=== PATIENT | male | born 1965 | race Caucasian/White ===

== ENCOUNTER 2018-11-10 00:54 | Outpatient (CLI) | payer OTHER, MEDICAID, SELFPAY ==
--- NOTE | 2018-11-10 15:56 | DI.RAD_ITS ---
SYMPTOM/DIAGNOSIS: PAIN IN LEFT ;HIP M25.552 PELVIS AND LEFT HIP: There are no prior comparison exams. There is moderate to severe narrowing of both hip joint spaces, greatest superiorly left greater than right. There is acetabular spurring bilaterally, left greater than right as well as spurring from the margin of the femoral head bilaterally. The S-I joints and pubic symphysis are unremarkable. IMPRESSION: Severe degenerative changes of both hips, left greater than right.
== END 2018-11-10 01:14 ==
PROVIDERS: PCP Family Medicine
DX: M25.552 Pain in left hip (principal); M16.0 Bilateral primary osteoarthritis of hip
CPT/HCPCS: 73502

== ENCOUNTER 2019-05-09 11:03 | Outpatient (CLI) | payer MEDICAID, SELFPAY ==
--- NOTE | 2019-05-09 10:15 | DI.RAD_ITS ---
EXAM: XR PELVIS AP INDICATION: mag marker. COMPARISON: XR hip LT complete AP pelvis from 11/10/2018 TECHNIQUE: 2D digital imaging was performed. FINDINGS: In the left hip, there is moderately severe narrowing of the joint space. Periarticular spurring and subchondral sclerosis is seen. In the right hip, moderately severe narrowing is present. There is mild subchondral sclerosis and periarticular spurring present. Soft tissues are unremarkable. IMPRESSION: Bilateral hip osteoarthritis.
== END 2019-05-09 11:23 ==
PROVIDERS: PCP Family Medicine; Visit Provider Student in an Organized Health Care Education/Training Program
DX: M16.0 Bilateral primary osteoarthritis of hip (principal)
CPT/HCPCS: 72170

== ENCOUNTER 2019-06-21 08:37 | Outpatient (CLI) | payer MEDICAID, SELFPAY ==
[2019-06-21 10:09] LABS: HCT 44.2 % (40.0-50.0); HGB 14.9 g/dL (13.5-17.5); Mean Corp. HGB Concentration 33.7 g/dL (32.0-36.0); Mean Corpuscular Hemoglobin 30.5 pg (27.0-33.0); Mean Corpuscular Volume 90.6 fL (80-95); Mean Platelet Volume 9.4 fL (8.0-11.0); Platelet Count 251 x1000/uL (130-400); RBC 4.88 m/cumm (4.50-6.00); RBC Distribution Width 13.2 % (11.8-14.1); White Blood Cell Count 6.04 k/cumm (4.4-10.8)
[2019-06-21 10:34] LABS: Anion Gap 7.8 mmol/L (3-11); BUN 10 mg/dL (7-18); CO2 28.2 mmol/L (21.0-32.0); CREATININE 1.19 mg/dL (0.70-1.30); Calcium 8.3 mg/dL (8.5-10.1); Chloride 104 mmol/L (98-107); Glucose 122 mg/dL (74-106); Potassium 4.4 mmol/L (3.5-5.1); Sodium 140 mmol/L (136-145)
== END 2019-06-21 08:57 ==
PROVIDERS: PCP Family Medicine; Visit Provider Student in an Organized Health Care Education/Training Program
DX: M25.552 Pain in left hip (principal); M16.12 Unilateral primary osteoarthritis, left hip; Z01.818 Encounter for other preprocedural examination; Z01.812 Encounter for preprocedural laboratory examination
CPT/HCPCS: 36415; 80048; 85027; 86850; 86900; 86901

== ENCOUNTER 2019-06-28 05:55 | Observation (INO) | payer MEDICAID, SELFPAY ==
[2019-06-21 08:44] VITALS: BP 119/81; PULSE 79; O2SAT 97
[2019-06-21 08:49] VITALS: BP 119/81; PULSE 79; O2SAT 97
[2019-06-21 08:50] VITALS: BP 119/81; PULSE 79; O2SAT 97
[2019-06-28] VITALS (10 sets, daily range): BP systolic 108–133; BP diastolic 61–84; PULSE 62–95; RESP 12–22; TEMP 36.1–37.1; O2SAT 95–99
[2019-06-28] MEDS: Acetaminophen 500 MG TAB 1000 MG PO ×2 (06:37→14:36)
[2019-06-28] MEDS: Celecoxib 200 MG CAP 400 MG PO (06:37)
[2019-06-28] MEDS: Lactated Ringers 1,000 ML 80 ML IV (06:48)
--- NOTE | 2019-06-28 07:45 | DI.RAD_ITS ---
EXAM: XR HIP LT IN OR CLINICAL HISTORY: left total hip arthroplasty - anterior. TECHNIQUE: 2D digital imaging was performed. Fluoro time: 54.4 s, 7.77 mGy COMPARISON: XR PELVIS AP from 05/09/2019 FINDINGS: Fluoroscopy was utilized in the OR during the placement of a left total hip replacement. The orthope dic hardware appears in good position. Please refer to the procedure report for complete details. IMPRESSION: Status post left THR.
[2019-06-28] MEDS: ceFAZolin 2 GM/50 ML BAG IVPB (07:53)
[2019-06-28] MEDS: Bupivacaine 0.25% Pres-Free 30 ML VIAL (09:36)
[2019-06-28] MEDS: Ketorolac 30 MG/ML VIAL (09:38)
--- NOTE | 2019-06-28 09:57 | W.PM.OP ---
Date of service: 06/28/19 Time of Service: 09:57 Operative Note Operative Note DATE OF PROCEDURE: 06/28/19 PRE-OP DIAGNOSIS: Left Hip Osteoarthritis POST-OP DIAGNOSIS: same PROCEDURE: Left Anterior Total Hip Arthroplasty SURGEON: Thomas Reid MARKETING INFORMATION MANAGER: Linda Lawton ANESTHESIA: spinal ESTIMATED BLOOD LOSS: 300 PATHOLOGY: none sent COMPLICATIONS: None Patient was transported to: PACU Patient's condition: stable Implants: 1. Depuy [place] Acetabular Component, 56mm 2. Depuy Acetabular Liner, [id number] 3. Depuy Corail Standard Collared Femoral Stem, Size 13 4. Depuy Altrx Ceramic Femoral Head, Size 36+5mm Indications: I have seen Iam in clinic for symptoms of hip arthritis, confirmed with radiographic findings. Iam has exhausted nonoperative methods and was having significant limitations in daily function and desired better function and less pain. I discussed the technical details of a hip replacement. I explained the risks of the procedure to include, but not limited to, bleeding, infection, pain, stiffness, fracture, damage to nerves and vessels, damage to muscles and tendons, loosening, instability, leg length inequality, need for repeat procedure, blood clot and cardiopulmonary demise. Despite these risks, Iam elected to proceed. Findings: There was significant signs of arthritis throughout the hip. Procedure Description: Iam was greeted in the preoperative holding area where the correct side was identified and marked. The consent was reviewed with the patient and signed. The history and physical was updated. All questions were answered. Iam was taken back to the operating room. A spinal anesthestic was then administered. The patient was placed into the supine position on the operating room table. The patient was then positioned onto the ARCH table. Both feet were wrapped with Webrill cotton wrap along with Coban. The feet were placed in specialized boots for the ARCH table, well seated within the boot and secured. SCDs were applied. The patient was then slid down onto a peroneal post and the nonoperative leg was secured in a leg chandra attached to the table. The operative side was placed into the ARCH table attachment and bed height and positioning was secured. A preoperative AP pelvis was obtained to serve as a reference for determining leg lengths. Prophylactic antibiotics in the form of Cefazolin were administered. 1g of Tranxemic Acid was given intravenously within 30 minutes of incision. The left leg was then prepped with Chloraprep and draped in a standard fashion. A second prep was performed prior to placing the final shower-curtain type drape with Iodine impregnated skin protection. A timeout to confirm correct identity, side and site, procedure, allergies, anesthesia, and medical concerns was performed. An obliquely oriented incision was made starting lateral to the ASIS and running distal over the Tensor Fascia Herlinda (TFL) muscle belly toward the fibular head, approximately 10cm. The skin and soft tissue was dissected sharply, through Ford?s fascia, and to the fascia of the TFL. With the fascia and superior border of the IT band identified, the fascia was incised with a new knife just above any perforators from the IT band. The TFL muscle belly was bluntly dissected away from the fascia and moved laterally. The fat between TFL and rectus was identified to ensure the dissection was not within the TFL. Blunt dissection created space between abductors and the capsule and retractor was placed over the lateral femoral neck. The fibers of the rectus femoris tendon were identified and these were freed from the anterior capsule. A second cobra retractor was placed around the medial femoral neck. The TFL was further retracted laterally to show the deep fascia. Careful dissection through this layer identified three main crossing vessels of the lateral femoral circumflex. These were cauterized in multiple locations and then cut without any noticeable bleeding. The TFL was further released bluntly from the deep fascia to expose anterior hip capsule and fat The César orthopaedic retractor was then placed beneath the TFL and against sartorius and medial soft tissues to protect and retract the soft tissues. A T-capsulotomy was then performed starting at the superior lateral acetabulum and moving distally to the intertrochanteric ridge. These capsular flaps were tagged with a No. 1 Ethibond and elevated from within. The capsular flaps were released to the shoulder of the lateral neck and to the lesser trochanter to give excellent visualization of the proximal femur. A neck osteotomy was performed using an oscillating saw based on preoperative templates. This cut started in the shoulder and of the lateral neck and exited medially. The saw was at all times directed medially to avoid injury to the greater trochanter. 6cm of traction was applied to the leg and the osteotomy opened. The femoral head was removed with a corkscrew, making sure to protect the TFL on its exit. This was measured on the back table to determing the starting reamer size. Portions of the rectus obscuring visualization were minimally elevated off the superior acetabulum. An anterior retractor was placed over the anterior wall between capsule and labrum and held with the Gripper retraction system. A posterior retractor was placed similarly. This provided excellent visualization. The contents of the cotyloid fossa were removed with electrocautery and the labrum was removed with a knife. There was a notable floor osteophyte. There was significant chondromalacia of the superior acetabulum. Acetabular reaming began with a 52mm reamer. This first reaming was directed anterior to posterior and medial to get down to the true floor. This was inspected and reamed until the true floor was reached. I then reamed sequentially up to a 56mm reamer where good fit was obtained. The larger reamers were oriented based on anatomical reference of the anterior and lateral bautista to ensure proper abduction and anteversion. Positioning and size was confirmed with the fluoroscopy. A 56mm Depuy [place] acetabular component was selected. The deep tissues were irrigated. The acetabular component was then impacted in a position of about 40-45 degrees of abduction and 15-20 degrees of anteversion, using the patient?s anatomy as the ultimate landmark. Fluoroscopy was used to confirm this. There was excellent internal affairs commander of the acetabular component and the inserting handle was removed. The acetabular liner, Depuy [id number] polyethylene liner, was inserted and lined up with the tines of the acetabular component. There was no soft tissue interposition. The liner was then impacted into position and confirmed to be well-seated. A portion of the mk-articular cocktail was then injected around the acetabulum into the capsule and periosteum. This cocktail consisted of 50cc of 0.25% Bupivicaine and 20cc of Exparel, expanded to a total of 120cc. Traction was released from the femur. The leg was rotated to 120 degrees. Any remaining medial capsule was released until the lesser trochanter was easily palpable. A Velasco retractor was placed medially. The lateral capsule was further released into the shoulder to allow access to the greater trochanter. A Velasco retractor was placed over the greater trochanter which allowed the trochanter to flip in front of the capsule for excellent exposure. The leg was brought down into maximal extension and 20 degrees of adduction while ensuring there was no impingement on the acetabulum. Any remnant capsule within the trochanter was released. Piriformis and obturator externis were identified and protected. There was excellent access to the proximal femur. The lateral neck remnant was removed with a rongeur. A blunt canal probe was used to identify the canal and trajectory for later broaching. A box osteotome initiated the broach course. A small curved rasp and a curved curette were used to work laterally. Broaching then began with a size 8 Corail broach. This was inserted manually around the trochanter and into the canal before mallet blows. The broach was seated to a few millimeters below the cut level based on the neck cut and the preoperative template. Sequential broaching was continued until a tight fit was obtained with good rotational control of the femur. A trial standard neck was inserted along with a +5 trial head. The cup was slightly more lateral than my template and the neck cut was a few mm shorter so I went with a standard neck versus lateralized. The leg was brought out of extension and adduction and then reduced with traction and internal rotation. The leg was stable anteriorly in a position of 30 degrees of extension and 90 degrees of external rotation. Fluoroscopy was used to ensure there was no fracture and the stem was seated well. Leg lengths were checked with an AP pelvis and pelvic reference points. Once content with the desired offset and leg lengths, the leg was brought back into extension, external rotation and adduction. The periosteum and surrounding tissue was injected with remaining portion of the mk-articular cocktail. The proximal femur was irrigated as well as the deep tissues. The Depuy [place] standard collared stem, size 13, was then manually inserted into the proximal femur making sure to control rotation. It was then malleted into position with light blows, giving breaks to allow bone expansion and decrease risk of fracture. The selected Depuy Altrx Ceramic Head, size 36+5mm, was then placed onto the clean and dry trunnion and secured with impaction onto the tapered fit. The leg was brought back out of extension and adduction and reduced with traction and internal rotation. Stability was confirmed with no shuck at 90 degrees of external rotation and 30 degrees of extension. There was some very minimal impingement posterior-inferiorly from an acetabular osteophyte. This was resected with a curved osteotome. Afterwards, there was no impingement through range of motion arc. Final x-ray images were obtained with fluoroscopy to confirm adequate positioning and no intraoperative fracture. The deep tissues were thoroughly irrigated with a pulse lavage. The second dose of TXA 1g was administered intravenously.The capsule was then reapproximated with the previously placed Ethibond sutures. The TFL fascia was finally closed with a No. 2 Stratafix, barbed suture. Deep tissues were then reapproximated with 0 Vicryl and a running 2-0 Vicryl. The skin was closed with a running 4-0 Monocryl in a subcuticular fashion. This was reinforced with skin glue. A Mepilex silver dressing was applied. At the end of the case, all counts were correct. Iam was transferred to the hospital bed without difficulty and suffering no apparent complication. Iam has a good prognosis. Physical therapy will start today and without restrictions, weight-bearing as tolerated. Aspirin 81mg BID will be used for DVT prophylaxis.
[2019-06-28] MEDS: Normal Saline Flush 10 ML SYR IV (11:18)
--- NOTE | 2019-06-28 14:16 | DSE_ITS ---
Date of service: 06/28/19 Time of Service: 14:16 DS: Diagnosis Discharge Diagnosis (1) Primary osteoarthritis of left hip: Status: Acute Discharge Plan Disposition Patient Disposition: HOME Condition: Good Discharge Details Reason For Visit: L HIP DJD Admit Date/Time: 06/28/19 05:55 Admit Provider: Thomas Reid Attending Provider: Thomas Reid [facility] Course: Patient was admitted to the medical/surgical floor following the procedure. It was tolerated well without any notable medical, surgical, or anesthetic complications. Mobilization began postoperatively. The diamond catheter was removed and voiding spontaneously. Vitals were stable. Physical therapy worked with the patient and was cleared for discharge home. No acute medical issues. Home Meds and New Rx's Prescriptions: New aspirin 81 mg tablet,delayed release (DR/EC) 81 mg PO BID Qty: 60 RF: 0 acetaminophen 500 mg tablet 1,000 mg PO Q8H PRN (Reason: pain) Qty: 90 RF: 3 pantoprazole 40 mg tablet,delayed release (DR/EC) 40 mg PO DAILY Qty: 30 RF: 0 ibuprofen 600 mg tablet 600 mg PO TID PRNQty: 90 RF: 3 oxycodone 5 mg tablet 5 mg PO Q6H PRN PRNQty: 12 RF: 0 Discontinued ibuprofen [Ibuprofen IB] 200 MG tablet 800 mg PO PRN RF: 0 diclofenac sodium [Voltaren] 1 % Gel 1 % TOPICAL DIRECTED RF: 0 Discharge Instructions Additional Instructions: Dr. Reid?s Total Hip Discharge Instructions Activity: The most important activity is to walk. You should try to take short walks a few times a day. You have no restrictions on movement or positioning, but do not try to force what you do. You will find some stiffness and weakness with hip flexion (lifting your knee). Do not try to strengthen this too early, continue to practice walking and stairs and this will come. - Outpatient physical therapy can be helpful to help return you to a normal gait and improve your flexibility and strength. This can start around 2 weeks. For some patients, it?s not necessary. Usually this is determined at the time of discharge or at the first post-operative visit. - You should wear the DELLA hose on both legs for 2 weeks. Dressing: Keep the surgical dressing in place for at least one week. After the first week it may be removed and replace with light gauze and tape or nothing. It may get wet after 3 days but avoid soaking the dressing. If it gets wet, just lightly pat dry. It is important to always keep some gauze between skin folds, especially when you are sitting. Spend some time with the wound exposed when you are lying flat as the incision does wrinkle onto itself. Medications: - You should take Tylenol and an anti-inflammatory Ibuprofen as your primary pain control medications - You have been prescribed a stronger pain medication Oxycodone for breakthrough pain, take as needed as prescribed. - You have also been prescribed a stomach acid reduction agent Pantoprozole to help reduce stomach acid and reflux. - You will be taking Aspirin 81mg twice a day for DVT prevention unless instructed otherwise. - If you have constipation you should take Colace or Miralax (both [id number]). It takes most people 3-4 days to have a bowel movement. Follow-up: 2 weeks Stand Alone Forms: Nursing Discharge Form Referrals: Thomas Reid MD [ [facility] STAFF PHYSICIAN] - Activity:: Activity as Tolerated Equipment/Supplies:: Walker Diet:: As Tolerated Discharge Orders Discharge Orders: Discharge Order (Routine); Ordered 06/28/19 Ordered By: Thomas Reid DS: Summary Status at Discharge Functional status at discharge: uses cane/walker Overall status at discharge: patient is progressing back to baseline Mental Status: mental status grossly normal Speech and Movement: speech and movement normal Mood: congruent mood Affect: normal affect Exam Psych Mental Status: mental status grossly normal Speech and Movement: speech and movement normal Mood: congruent mood Affect: normal affect DS: Data Vitals/I&O Vitals and I&O: Vital Signs Temperature 37.1 C 06/28/19 12:24 Temperature Source Temporal Artery Scan 06/28/19 12:24 Pulse 67 06/28/19 12:24 Pulse Rhythm Regular 06/28/19 06:09 Respiratory Rate 18 06/28/19 12:24 Respiratory Effort 06/28/19 06:09 Respiratory Depth Normal 06/28/19 06:09 Blood Pressure 133/67 06/28/19 12:24 Pulse Oximetry 98 06/28/19 12:24 Respiratory End-tidal CO2 31 06/28/19 10:10 Oxygen Delivery Method Room Air 06/28/19 12:24 Oxygen Flow Rate 0 06/28/19 12:24 Pain Level 0 06/28/19 11:16 Intake & Output 06/27/19 06/28/19 06/28/19 23:59 11:59 23:59 Intake Total 1024.667 / 1024.667 Output Total 350 / 350 Balance 674.667 / 674.667 Weight 119.3 kg Intake: IV 1024.667 / 1024.667 Output: Urine 50 / 50 Estimated Blood Loss 300 / 300 Other: Urine Color Yellow Urine Appearance Clear Emesis Description None PFSH Medical History IBS (irritable bowel syndrome) (Chronic) Tinnitus (Acute) Social History Smoking/Tobacco Use Status: Never Alcohol Intake: current Details: one wine cooler/week Drug use: Never Current gender identity: male
[2019-06-28] MEDS: ceFAZolin 1 GM/50 ML BAG IVPB (14:37)
--- NOTE | 2019-06-28 14:37 | PT.INIE ---
Date of service: 06/28/19 Time of Service: 12:45 PT Notes Visit Reasons: L HIP DJD Physical Therapy Inpatient Initial Evaluation Date: 06/28/2019 Referring Doctor: Thomas Reid M.D. PT Orders: PT CONSULT: s/p ortho surgery Precautions: Fall. Standard. Activity as tolerated. Patient Profile/Admitting Diagnosis: Pt is a 54-year-old male presenting status post left total hip arthroplasty on post-operative day 0 due degenerative joint diesease of L hip. PMHX: Medical History (Updated 06/21/19 @ 08:56 by Vinayak Disla) IBS (irritable bowel syndrome) (Chronic) Tinnitus (Acute) Social History/Home Situation: Pt lives at home in [facility] with his and three kids. States that he has ten covered stairs to enter his home with railing on the right. No stairs once in the home. He is a pork and beef slaughterer. Equipment Owned/DME: crutches Subjective: Pt states that he is numb in his buttox, but is able to feel his legs. Not experiencing any pain. He notes that he feels better now than he did prior to the surgery and has better range now as well. Objective: General Observation: Mepilex dressing over incision. Thromboembolic pumps on bilateral LEs. Mental Status: alert and oriented x4 Pain: 0/10 ROM: Right Upper Extremity: Shoulder Flexion WFL. Shoulder abduction WFL. Elbow flexion WFL. Wrist flexion WFL. Opening and closing of hand WFL. Left Upper Extremity: Shoulder Flexion WFL. Shoulder abduction WFL. Elbow flexion WFL. Wrist flexion WFL. Opening and closing of hand WFL. Right Lower Extremity: Hip flexion WFL. Hip abduction WFL. Knee flexion WFL. Ankle dorsiflexion WFL. Ankle plantarflexion WFL. Left Lower Extremity: Hip flexion WFL. Hip abduction WFL. Knee flexion WFL. Ankle dorsiflexion WFL. Ankle plantarflexion WFL. Strength: Right Upper Extremity: Shoulder flexors 5/5. Shoulder abductors 5/5. Elbow flexors 5/5. Elbow extensors 5/5. Repair Manager strong. Left Upper Extremity: Shoulder flexors 5/5. Shoulder abductors 5/5. Elbow flexors 5/5. Elbow extensors 5/5. Repair Manager strong. Right Lower Extremity: Hip flexors 5/5. Hip abductors 5/5. Knee flexors 5/5. Knee extensors 5/5. Ankle dorsiflexors 5/5. Ankle plantarflexors 5/5. Left Lower Extremity: Hip flexors 4+/5. Hip abductors 5/5. Knee flexors 5/5. Knee extensors 5/5. Ankle dorsiflexors 5/5. Ankle plantarflexors 5/5. Sensation: Intact as to pain and pressure on bilateral lower extremities. Bed Mobility/Transfers: Rolling independent Supine to sit independent Sit to supine independent Sit to stand supervision Stand to sit supervision Bed to chair supervision Chair to bed supervision Gait: Pt was able to ambulate 100 feet x2, WBAT on the left LE, using a front-wheeled walker. CGA provided by PT with wheelchair follow provided by PT student. Reciprocal, step through gait pattern. No complaints of increased pain, SOB, dizziness, but did not a ?tinge? in the hip when walking. Stairs: Pt was able to ascend and descend the 6-inch steps x 6 and 4-inch steps x 9 with SBA provided by PT and PT student. step through gait pattern used without pain complaint. He performed one time with bilateral UE support and twice with only support of the right UE. No complaints of increased pain. Balance: Static Sitting: Normal Dynamic Sitting: Normal Static Standing: Fair Dynamic Standing: Fair Special Tests: Mobility Limitations Standardized Measure [facility] AM-PAC 6 clicks Basic Mobility Inpatient Short Form: Raw Score: 24 CMS Score: 0% deficit Informed Consent/Education: Patient instructed in purpose of PT consult and plan of care. Instructed the patient in exercises to perform every hour while the hospital including glute sets x 10, quad sets x10, and ankle pumps x 10. Assessment: Pt is a 54-year-old male presenting status post left total hip arthroplasty on post-operative day zero. He presents with impairment level findings and functional limitations as listed below. He does not require skilled physical therapy services at this time. Patient presents with clinical signs and symptoms consistent with current/admitting diagnoses that have resulted to mobility limitations, gait instability, and generalized weakness as demonstrated by the following impairment level findings: 1. Decreased strength to left hip flexor muscle groups 2. Impaired standing balance 3. Impaired activity tolerance Impairments are contributing to the following functional limitations: 1. Inability to safely ambulate without assistive device and physical assistance 2. Increase completion time for mobility ADL performance 3. Increased fall risk Patient is assessed as a 60311 moderate complexity based on the following: History: Pt presents with impairment level findings and functional limitations as listed above. Examination: Demonstrable impairment in strength, balance, and range of motion with underlying impairments and functional limitations as documented above Presentation: Evolving Decision Makin moderate complexity Goals: N/A. Physical therapy evaluation only. DISCHARGE RECOMMENDATIONS: Discharge to home once medically cleared. Recommend front-wheeled walker for ambulation. TREATMENT CODE/TIME: 90907 x 30 minutes beginning at 12:45 P.M. Thank you very much for this referral. Alison Connolly, SPT Doctor of Physical Therapy Student [facility] Supervision provided by Gracia Dougherty PT, DPT, CLT [facility] [place], [place]
== END 2019-06-28 18:17 | disposition home or self-care (01) ==
LOC: MS 10:35 → PDS 13:12
PROVIDERS: Admitting Provider Student in an Organized Health Care Education/Training Program; PCP Family Medicine; Visit Provider Student in an Organized Health Care Education/Training Program
PROC: 0SRB04A Replacement of Left Hip Joint with Ceramic on Polyethylene Synthetic Substitute, Uncemented, Open Approach (ICD-10-PCS; CPT 27130; principal; 2019-06-28 08:30)
DX: M16.12 Unilateral primary osteoarthritis, left hip (principal); M25.552 Pain in left hip; Z96.642 Presence of left artificial hip joint
CPT/HCPCS: 27130; C1776; 97162; NC; 73501; G0378; J0690; J1885; J2405

== ENCOUNTER 2019-07-14 09:33 | Outpatient (CLI) | payer MEDICAID, SELFPAY ==
--- NOTE | 2019-07-14 09:15 | DI.RAD_ITS ---
EXAM: XR HIP LT COMPLETE AP PELVIS INDICATION: 1ST POST OP. COMPARISON: XR hip LT complete AP pelvis from 11/10/2018 XR HIP LT IN OR from 06/28/2019 TECHNIQUE: 2D digital imaging was performed. FINDINGS: There are stable postsurgical changes of a left total hip replacement. No evidence of hardware failu re is seen. The soft tissues are unremarkable. IMPRESSION: Stable left THR. DATA REPOSITORY: RADIATION DOSE DELIVERED:
== END 2019-07-14 09:53 ==
PROVIDERS: PCP Family Medicine; Visit Provider Student in an Organized Health Care Education/Training Program
DX: Z96.642 Presence of left artificial hip joint (principal); Z47.1 Aftercare following joint replacement surgery
CPT/HCPCS: 73502

== ENCOUNTER 2020-09-06 08:48 | Outpatient (CLI) | payer MEDICAID, SELFPAY ==
--- NOTE | 2020-09-06 08:00 | DI.RAD_ITS ---
EXAM: XR HIP LT AP LAT ONLY CLINICAL HISTORY: pain at incision. TECHNIQUE: 2D digital imaging was performed. COMPARISON: CR XR HIP LT COMPLETE AP PELVIS from 07/14/2019 FINDINGS: Position alignment of the components of the prosthesis remain stable. No fracture or loosening. No radiographic evidence of osteomyelitis. IMPRESSION: DATA REPOSITORY: RADIATION DOSE DELIVERED:
== END 2020-09-06 08:49 | disposition home or self-care (01) ==
LOC: DIORS 08:48
PROVIDERS: Visit Provider Physician Assistant Surgical
DX: M25.552 Pain in left hip (principal); Z96.642 Presence of left artificial hip joint; Z47.1 Aftercare following joint replacement surgery
CPT/HCPCS: 73502

== ENCOUNTER 2020-11-01 04:04 | Outpatient (CLI) | payer MEDICAID, SELFPAY ==
--- NOTE | 2020-11-01 | DI.RAD_ITS ---
Exam(s) XR CHEST 2V PA LATERAL EXAM: XR CHEST 2V PA LATERAL CLINICAL HISTORY: SOB,R06.02. TECHNIQUE: 2D digital imaging was performed. COMPARISON: No exams were available for comparison FINDINGS: Heart size is normal. The mediastinum is not widened. There is subsegmental platelike atelectasis in the lateral left lung base. No other pulmonary findin gs. No pleural effusions. Mild thoracic scoliosis noted. IMPRESSION: Platelike atelectasis left lung base.No pleural effusions. DATA REPOSITORY: RADIATION DOSE DELIVERED:
[2020-11-01] MEDS: Albuterol HFA 18 GM 200 PUFF INH IH (09:06)
[2020-11-01] MEDS: Inhaler, Assist Device 1 EACH MC (09:07)
--- NOTE | 2020-11-01 18:45 | W.PFT ---
Date of service: 11/01/20 Time of Service: 08:04 Pulmonary Function Test Result Interpretation Spirometry: No evidence of obstructive airways disease, no bronchodilator response. The constellation of findings is suggestive of possible underlying restriction. Impression No evidence of obstructive airways disease, no bronchodilator response. The constellation of findings is suggestive of possible underlying restriction. If underlying restrictive lung disease is suspected, proceeding with lung volume and diffusion capacity measurements is recommended Clinical Correlation therefore is recommended.
== END 2020-11-01 04:05 | disposition home or self-care (01) ==
LOC: RT 04:04
PROVIDERS: Visit Provider Orthopaedic Surgery
DX: R06.02 Shortness of breath (principal); J98.11 Atelectasis
CPT/HCPCS: 94060; 71046

== ENCOUNTER 2021-02-25 01:42 | Outpatient (CLI) | payer MEDICAID, SELFPAY ==
--- NOTE | 2021-02-25 14:57 | DI.RAD_ITS ---
Exam(s) XR HIP RT COMPLETE AP PELVIS EXAM: XR HIP RT COMPLETE AP PELVIS CLINICAL HISTORY: RT HIP PAIN,[id number],OA BOTH HIPS,S/P LT HIP REPLACEMENT. TECHNIQUE: 2D digital imaging was performed. COMPARISON: CR XR HIP LT AP LAT ONLY from 09/06/2020 FINDINGS: There is a left hip prosthesis again noted. No pelvic or hip fractures. Moderate-advanced degenerat cami changes in the right hip noted with almost [id number] narrowing of the superior aspect of the j oint and XXXX marginal osteophyte in patella. No osseous lesions. Sacroiliac joints appear unremark able. IMPRESSION: Significant degenerative changes in the right hip. Left hip prosthesis. DATA REPOSITORY: RADIATION DOSE DELIVERED:
== END 2021-02-25 02:02 ==
PROVIDERS: Visit Provider Nurse Practitioner Family
DX: M25.551 Pain in right hip (principal); M16.11 Unilateral primary osteoarthritis, right hip
CPT/HCPCS: 73502

== ENCOUNTER 2021-07-08 02:04 | Outpatient (CLI) | payer OTHER, MEDICAID, SELFPAY ==
[2021-07-08 10:32] LABS: Source Nasal/Nares
[2021-07-08 14:08] LABS: COVID-19 PCR Negative (Negative)
== END 2021-07-08 02:05 | disposition home or self-care (01) ==
LOC: LBO 02:04
PROVIDERS: PCP Nurse Practitioner Family; Visit Provider Student in an Organized Health Care Education/Training Program
DX: Z20.822 Contact with and (suspected) exposure to COVID-19 (principal); Z01.818 Encounter for other preprocedural examination
CPT/HCPCS: 87635

== ENCOUNTER 2021-07-08 03:04 | Outpatient (CLI) | payer OTHER, MEDICAID, SELFPAY ==
[2021-07-08 08:53] LABS: HGB 15.2 g/dL (13.5-17.5); MCH 30.4 pg (27.0-33.0); MPV 9.3 fL (8.0-11.0); Platelet Count 251 10^3/uL (130-400); RDW 12.5 % (11.8-14.1); RDW-SD 42.5 fL; WBC 8.18 10^3/uL (4.4-10.8)
[2021-07-08 09:46] LABS: Anion Gap 7.9 mmol/L (3-11); BUN 15 mg/dL (7-18); CO2 28.1 mmol/L (21.0-32.0); CREATININE 1.3 mg/dL (0.70-1.30); Calcium 8.9 mg/dL (8.5-10.1); Chloride 102 mmol/L (98-107); Estimated GFR 57.53 (mL/min/1.73m2); Glucose 148 mg/dL (74-106); Potassium 4.3 mmol/L (3.5-5.1); Sodium 138 mmol/L (136-145)
== END 2021-07-08 03:05 | disposition home or self-care (01) ==
LOC: LBO 03:05
PROVIDERS: PCP Nurse Practitioner Family; Visit Provider Student in an Organized Health Care Education/Training Program
DX: M16.11 Unilateral primary osteoarthritis, right hip (principal); Z01.818 Encounter for other preprocedural examination
CPT/HCPCS: 36415; 80048; 85027; 86850; 86900; 86901

== ENCOUNTER 2021-07-09 05:58 | Day surgery (SDC) | payer OTHER, MEDICAID, SELFPAY ==
[2021-07-09] VITALS (10 sets, daily range): BP systolic 82–139; BP diastolic 52–89; PULSE 65–91; RESP 12–20; TEMP 36.1–36.6; O2SAT 94–100; BMI 33.2
[2021-07-09] MEDS: Lactated Ringers 1,000 ML 80 ML IV (06:42)
[2021-07-09] MEDS: Acetaminophen 500 MG TAB 1000 MG PO (06:50)
[2021-07-09] MEDS: Celecoxib 200 MG CAP 400 MG PO (06:50)
--- NOTE | 2021-07-09 07:00 | DI.RAD_ITS ---
Exam(s) XR HIP RT IN OR EXAM: XR HIP RT IN OR CLINICAL HISTORY: right total hip TECHNIQUE: 2D and realtime digital imaging was performed. CONTRAST MATERIAL: Refer to procedure report. COMPARISON: CR XR HIP RT COMPLETE AP PELVIS from 02/25/2021 FINDINGS: Fluoroscopy was provided for Dr. Reid during the performance of a right total hip replacement. Please refer to the procedure report for complete details. Ka,r=5.47 mGy IMPRESSION: RADIATION DOSE DELIVERED:
--- NOTE | 2021-07-09 07:10 | W.ANESPRE ---
General Info Date of Service Date Performed: 07/09/21 Height: 6 ft 3 in Weight: 120.5 kg Body Mass Index (BMI): 33.2 Surgical Procedure: Operation Date: 07/09/21 07:50 Proposed Procedure Side Surgeon p Hip Total Hip Anterior Right Thomas Reid MD Meds Allergies and Home Medications Allergies Allergy/AdvReac Type Severity Reaction Status Date / Time No Known Allergies Allergy Verified 07/09/21 06:13 Home Medication Medication Instructions Recorded acetaminophen 500 mg tablet 1,000 mg PO Q8H PRN #90 tab 06/28/19 ibuprofen 600 mg tablet 600 mg PO TID PRN #90 tab 06/28/19 amitriptyline 25 mg tablet 20 mg PO HS tab 06/26/21 Current Visit Medications: Current Medications Generic Name Dose Route Start Last Admin Trade Name Freq PRN Reason Stop Dose Admin Acetaminophen 1,000 mg 07/09/21 06:00 07/09/21 06:50 Acetaminophen 500 Mg Tab PO 07/09/21 18:00 1,000 mg PREOP MAX Administration Celecoxib 400 mg 07/09/21 06:00 07/09/21 06:50 Celecoxib 200 Mg Cap PO 07/09/21 18:00 400 mg PREOP MAX Administration Tranexamic Acid 1,000 mg/ 60 mls @ 360 mls/hr 07/09/21 06:00 Sodium Chloride IV 07/09/21 18:00 PREOP MAX Cefazolin Sodium 3,000 mg/ 100 mls @ 200 mls/hr 07/09/21 06:00 Sodium Chloride IVPB 07/09/21 23:59 PREOP MAX Ringer's Solution 1,000 mls @ 80 mls/hr 07/09/21 06:00 07/09/21 06:42 IV 08/07/21 23:59 80 mls/hr INFUSION MAX Administration IV Miscellaneous Supplies 1 each 07/09/21 06:00 Iv Access IV 08/07/21 23:59 DIRECTED MAX Sodium Chloride 0 ml 07/09/21 06:00 Normal Saline Flush 10 Ml Syr IV 08/07/21 23:59 PRN PRN Sodium Chloride 0 ml 07/09/21 06:00 Normal Saline 10 Ml Vial IJ 08/07/21 23:59 DIRECTED PRN Sterile Water 0 ml 07/09/21 06:00 Water,Injection,Sterile 10 Ml Vial IJ 08/07/21 23:59 DIRECTED PRN PFSH Active Problems Active Problems: Problem Status Onset Code Osteoarthritis of right hip M16.11 Medical History Medical History IBS (irritable bowel syndrome) Tinnitus Surgical History Surgical History 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) Tobacco Smoking/Tobacco Use Status: Never Alcohol Alcohol Intake: never Details: one wine cooler/week Substance Use Substance use: Never Substance use type: does not use Vital Signs and Lab Results Vital Signs Most Recent Vital Signs in EMR: Most Recent Vital Signs Temp Pulse Resp BP Pulse Ox 36.6 C 91 H 16 139/76 97 07/09/21 06:15 07/09/21 06:15 07/09/21 06:15 07/09/21 06:15 07/09/21 06:15 Lab Results Blood Type / Crossmatch: Patient ABO/Rh O Positive 07/08/21 Antibody Screen NEGATIVE 07/08/21 Complete Blood Count: White Blood Count 8.18 10^3/uL (4.4-10.8) 07/08/21 08:40 07/08/21 Red Blood Count 5.00 10^6/uL (4.36-5.78) 07/08/21 08:40 07/08/21 Hemoglobin 15.2 g/dL (13.5-17.5) 07/08/21 08:40 07/08/21 Hematocrit 46.0 % (40.0-50.0) 07/08/21 08:40 07/08/21 Platelet Count 251 10^3/uL (130-400) 07/08/21 08:40 07/08/21 Complete Metabolic Panel: Sodium Level 138 mmol/L (136-145) 07/08/21 08:40 07/08/21 Potassium Level 4.3 mmol/L (3.5-5.1) 07/08/21 08:40 07/08/21 Chloride Level 102 mmol/L (98-107) 07/08/21 08:40 07/08/21 Carbon Dioxide Level 28.1 mmol/L (21.0-32.0) 07/08/21 08:40 07/08/21 Blood Urea Nitrogen 15 mg/dL (7-18) 07/08/21 08:40 07/08/21 Creatinine 1.3 mg/dL (0.70-1.30) 07/08/21 08:40 07/08/21 Estimated GFR/1.73 m2 57.53 (mL/min/1.73m2) 07/08/21 08:40 07/08/21 Calcium Level 8.9 mg/dL (8.5-10.1) 07/08/21 08:40 07/08/21 Glucose Level 148 mg/dL (74-106) H 07/08/21 08:40 07/08/21 Liver Function Panel: No Data to Display Coagulation Panel: No Data to Display Cardiac Panel: No Data to Display Arterial Blood Gas: No Data to Display Venous Blood Gas: No Data to Display Pancreas Panel: No Data to Display Thyroid Panel: No Data to Display Infectious Disease: Coronavirus (COVID-19)(PCR) Negative (Negative) 07/08/21 08:47 07/08/21 Coronavirus 2019 Source Nasal/Nares 07/08/21 08:47 07/08/21 Blood Cultures: No Data to Display Toxicology Panel: No Data to Display Anesthesia Assessment and Plan Anesthesia History Personal History: No History of Anesthesia Complications Family History: No Family History of Anesthesia Complications Exercise Tolerance Exercise Tolerance: Metabolic Equivalents>4 Pertinent Negatives Pertinent Negatives: No Symptoms of GERD, No Major Cardiovascular Symptoms or Complaints, No Major Pulmonary Symptoms or Complaints (Potential BRIA) and No History of CVA/TIA Cardiac & Pulmonary Exam Cardiac Exam: Normal S1/S2 Heart Sounds Pulmonary Exam: Clear Bilateral Breath Sounds Implantable Cardiac Device Does patient have a Pacemaker or an ICD?: No Airway Exam Known Difficult Airway: No Mallampati Class: 1 Mouth Opening: Normal (> 3cm) Thyromental Distance: Greater than 3 cm Neck Range of Motion: Full ROM Neck Circumference: Normal Teeth Condition: Normal Dentition ASA Classification ASA Score: ASA 2 Emergency Case?: No NPO Status NPO Status: NPO Clears >2 hours, Solids >8 hours Anesthesia Plan Resuscitation Status: Full Code Anesthesia Technique: Spinal Anesthesia Airway Planned: Natural Airway Monitors Used: Standard Monitors
--- NOTE | 2021-07-09 07:21 | W.PM.DSUDISC ---
Discharge Plan Disposition Patient Disposition: HOME Condition: Good Discharge Details Reason For Visit: Right Hip DJD Attending Provider: Thomas Reid Primary Care Provider: Aren Calvert Home Meds and New Rx's Prescriptions: New acetaminophen 500 mg tablet 1,000 mg PO Q8H PRN (Reason: pain) Qty: 90 3RF aspirin 81 mg tablet,delayed release (DR/EC) 81 mg PO BID Qty: 60 0RF oxycodone 5 mg tablet 5 mg PO Q4H Qty: 15 0RF pantoprazole 40 mg tablet,delayed release (DR/EC) 40 mg PO DAILY Qty: 30 0RF ibuprofen 600 mg tablet 600 mg PO TID PRN (Reason: pain) Qty: 90 3RF Continued amitriptyline 25 mg tablet 20 mg PO HS 0RF Discontinued acetaminophen 500 mg tablet 1,000 mg PO Q8H PRN (Reason: pain) Qty: 90 3RF ibuprofen 600 mg tablet 600 mg PO TID PRNQty: 90 3RF Discharge Instructions Additional Instructions: Total Hip Discharge Instructions Activity: The most important activity is to walk. You should try to take short walks a few times a day. You have no restrictions on movement or positioning, but do not try to force what you do. You will find some stiffness and weakness with hip flexion (lifting your knee). Do not try to strengthen this too early, continue to practice walking and stairs and this will come. - Outpatient physical therapy can be helpful to help return you to a normal gait and improve your flexibility and strength. This can start around 2 weeks. For some patients, it?s not necessary. Usually this is determined at the time of discharge or at the first post-operative visit. - You should wear the DELLA hose on both legs for 2 weeks. Dressing: Keep the surgical dressing in place for at least one week. After the first week it may be removed and replace with light gauze and tape or nothing. It may get wet after 3 days but avoid soaking the dressing. If it gets wet, just lightly pat dry. It is important to always keep some gauze between skin folds, especially when you are sitting. Spend some time with the wound exposed when you are lying flat as the incision does wrinkle onto itself. Medications: - You should take Tylenol and an anti-inflammatory Ibuprofen as your primary pain control medications. If the Celebrex is too expensive or not covered, please call the office for another alternative (Advil/Ibuprofen or Naproxen/Aleve). - You have been prescribed a stronger pain medication Oxycodone for breakthrough pain, take as needed as prescribed. - You have also been prescribed a stomach acid reduction agent Pantoprozole to help reduce stomach acid and reflux. - You will be taking Aspirin 81mg twice a day for DVT prevention unless instructed otherwise. - If you have constipation you should take Colace or Miralax (both [id number]). It takes most people 3-4 days to have a bowel movement. Follow-up: 2 weeks If you have any acute concerns or questions, please do not hesitate to contact the office at [phone]. You may contact Dr. Reid with any questions after hours through the hospital at [phone] or on his cell phone at [phone]. Referrals: Thomas Reid MD [ [facility] STAFF PHYSICIAN] - Equipment/Supplies: Walker Activity:: Activity as Tolerated Shower/Bathe:: Cover Diet:: As Tolerated Discharge Orders Discharge Orders: Discharge Order (Routine); Ordered 07/09/21 Ordered By: Thomas Reid DS: Diagnosis Discharge Diagnosis (1) Osteoarthritis of right hip: Status: Acute
[2021-07-09] MEDS: ceFAZolin 3,000 MG in Normal Saline 100 ML 200 MG IVPB (07:50)
[2021-07-09] MEDS: Ketorolac 30 MG/ML VIAL (08:30)
[2021-07-09] MEDS: Bupivacaine 0.25% Pres-Free 30 ML VIAL (08:30)
--- NOTE | 2021-07-09 10:33 | W.ANESPOSTOP ---
Postoperative Evaluation Date, Time and Location Date Performed: 07/09/21 Time Performed: 10:33 Patient Location: Day Surgery Unit Vital Signs Most Recent Imported Vital Signs: Most Recent Vital Signs Temp Pulse Resp BP Pulse Ox 36.1 C L 75 18 124/79 98 07/09/21 10:15 07/09/21 10:15 07/09/21 10:15 07/09/21 10:15 07/09/21 10:15 Pain Score Most Recent Pain Score: Most Recent Pain Score Pain Level 0 07/09/21 10:15 Assessment Mental Status: Awake (Alert & Oriented to Patient Baseline) Airway and Respiratory Function: Patent airway with normal (patient baseline) respiratory exam Cardiovascular Function: Hemodynamically Stable Hydration Status: Adequately Hydrated Nausea & Vomiting: No Nausea or Vomiting Pain: Pt. Denies Any Pain Peripheral Nerve Block: Patient did not receive a nerve block Teaching Patient Teaching: Discussed Safe Use of Pain Medication Given Recent Anesthesia and Discussed Safe Use of Pain Medication Given Likely or Known BRIA
--- NOTE | 2021-07-09 13:18 | IN_ITS ---
Date of service: 07/09/21 Time of Service: 13:18 PT Notes Visit Reasons: Right Hip DJD Physical Therapy Day Surgery Initial Evaluation Date: 07/09/2021 Referring Doctor: Franklin THOMAS Orders: PT CONSULT: Status post Ortho surgery. Status post right BLAIR. Precautions: WBAT on right LE with AD. Patient Profile/Admitting Diagnosis: Iam is a 56-year-old male with degenerative joint disease of the right hip and is status post right anterior total hip arthroplasty on postoperative day 0. 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 Dependent with all aspects of ADLs prior to surgery. Equipment Owned/DME: [facility] Subjective: Agreeable to PT consult. Objective: General Observation: Supine in bed. Mepilex Ag over surgical incision. Cold pack over surgical incision. TEDS on B legs. Mental Status: Alert and oriented x4 Pain: 2?3/10 on the right hip. ROM: Right Lower Extremity: Hip flexion WFL. Hip abduction WFL. Knee flexion WFL. Ankle dorsiflexion WFL. Ankle plantarflexion WFL. Left Lower Extremity: Hip flexion WFL. Hip abduction WFL. Knee flexion WFL. Ankle dorsiflexion WFL. Ankle plantarflexion WFL. Strength: Right Lower Extremity: Hip flexors 4/5. Hip abductors 4/5. Knee flexors 5/5. Knee extensors 5/5. Ankle dorsiflexors 5/5. Ankle plantarflexors 5/5. Left Lower Extremity:Hip flexors 5/5. Hip abductors 5/5. Knee flexors 5/5. Knee extensors 5/5. Ankle dorsiflexors 5/5. Ankle plantarflexors 5/5. Sensation: Intact as to pain and light pressure in bilateral lower extremities. Bed Mobility/Transfers: Supine to sit standby assist Sit to stand standby assist Stand to sit standby assist Bed to chair standby assist Gait: Instructed on level surface ambulation using front wheeled walker with step through gait pattern rec with patient requiring only standby assist for about 150 feet. No loss of balance. No shortness of breath. Denies headache, chest pain, and dizziness throughout activity. Nurse Ashutosh providing standby assist for safety. Stairs: Completed up-and-down 6 x 4 inch steps and 4 x 6 inch steps holding onto 1 rail with step to gait pattern requiring only contact-guard assist. Balance: Static Sitting: Normal Dynamic Sitting: Normal Static Standing: Fair Dynamic Standing: Fair Special Tests: Mobility Limitations Standardized Measure [facility] 6 clicks Basic Mobility Inpatient Short Form: Raw Score: 24 CMS Score: 0% deficit Informed Consent/Education: Patient instructed in purpose of PT consult. Education and training on initial set of exercises that can be done at home have been completed with patient. Assessment: Iam requires the use of a front wheel walker for all mobility ADL performance to maximize independence and reduce fall risk. He will have the support of his as he recovers. Patient presents with clinical signs and symptoms consistent with current/admitting diagnoses that have resulted to mobility limitations, gait instability, generalized weakness, and impairment of motor control as demonstrated by the following impairment level findings: 1. Decreased strength to right hip major muscle groups 2. Impaired standing balance Impairments are contributing to the following functional limitations: 1. Inability to safely ambulate without assistive device 2. Increase completion time for mobility ADL performance 3. Increased fall risk Patient is assessed as a [id number] moderate complexity based on the following: History: 56-year-old male with impairment level findings, functional limitations, and past medical history as indicated above Examination: Demonstrable impairment in strength, balance, and mobility level with underlying impairments and functional limitations as documented above Presentation: Evolving Decision Makin moderate complexity Goals: N/A. PT evaluation and 1-2 treatment sessions only for functional mobility training using recommended AD and for HEP instruction. Plan of Care/Treatment Plan: N/A. PT evaluation and 1-2 treatment session only for functional mobility training using recommended AD and for HEP instruction. DISCHARGE RECOMMENDATIONS: [] Home with no services [] [] Home with services [specify] [X] Home with outpatient PT. Home when medically cleared by orthopedic surgeon. Will benefit from outpatient PT services in order to facilitate return to independent community ambulation without an assistive device. [] SNF for continued rehabilitation [] [] [facility] [] [] SNF versus LTC based on ability to participate and progress [] TREATMENT CODE/TIME: 60826 x 20 minutes, 25886 x 12 minutes beginning at 13:18 PM. Thank you for the opportunity to participate in the care of this patient. Gracia Dougherty PT, DPT, CLT [facility] [place], [place]
--- NOTE | 2021-07-09 16:06 | ROE_ITS ---
Date of service: 07/09/21 Time of Service: 10:00 Operative Note Operative Note DATE OF PROCEDURE: 07/09/21 PRE-OP DIAGNOSIS: Right Hip Osteoarthritis POST-OP DIAGNOSIS: same PROCEDURE: Right Anterior Total Hip Arthroplasty SURGEON: Thomas Reid AUTOMATIC DOOR MECHANIC: Angelia Gaspar Refer to Anesthesia Record ESTIMATED BLOOD LOSS: 300 PATHOLOGY: none sent COMPLICATIONS: None Patient was transported to: PACU Patient's condition: stable Implants: 1. Depuy [place] Acetabular Component, 58mm 2. Depuy Acetabular Liner, [id number] 3. Depuy Corail High Offset Collared Femoral Stem, Size 13 4. Depuy Altrx Ceramic Femoral Head, Size 36+1.5mm Indications: I have seen Iam in clinic for symptoms of hip arthritis, confirmed with radiographic findings. He has exhausted nonoperative methods and was having significant limitations in daily function and desired better function and less pain. He had a previous left hip replacement with great success. I discussed the technical details of a hip replacement. I explained the risks of the procedure to include, but not limited to, bleeding, infection, pain, stiffness, fracture, damage to nerves and vessels, damage to muscles and tendons, loosening, instability, leg length inequality, need for repeat procedure, blood clot and cardiopulmonary demise. Despite these risks, Iam elected to proceed. Findings: There was significant signs of arthritis throughout the hip. Procedure Description: Iam was greeted in the preoperative holding area where the correct side was identified and marked. The consent was reviewed with the patient and signed. The history and physical was updated. All questions were answered. He was taken back to the operating room. A spinal anesthestic was then administered. The feet were wrapped with cast padding and Coban and then placed into the boot liners and then into the boots. Care was taken to protect the skin and make sure the heels were fully down and the boots were stable. The patient was then positioned onto the HANA table. Both legs were held in a neutral position. SCDs were applied. The patient was then slid down onto a peroneal post. Prophylactic antibiotics in the form of Cefazolin were administered. 1g of Tranxemic Acid was given intravenously within 30 minutes of incision. The right leg was then prepped with Chloraprep and draped in a standard fashion. A second prep with Chloraprep was performed prior to placement of a shower-curtain type drape with Iodine impregnated skin protection. A timeout to confirm correct identity, side and site, procedure, allergies, anesthesia, and medical concerns was performed. An obliquely oriented incision was made starting lateral to the ASIS and running distal over the Tensor Fascia Herlinda (TFL) muscle belly toward the fibular head, approximately 10cm. The skin and soft tissue was dissected sharply, through Ford?s fascia, and to the fascia of the TFL. With the fascia and superior border of the IT band identified, the fascia was incised with a new knife just above any perforators from the IT band. The TFL muscle belly was bluntly dissected away from the fascia and moved laterally. The fat between TFL and rectus was identified to ensure the dissection was not within the TFL. Blunt dissection created space between abductors and the capsule and retractor was placed over the lateral femoral neck. The fibers of the rectus femoris tendon were identified and these were freed from the anterior capsule. A second cobra retractor was placed around the medial femoral neck. The TFL was further retracted laterally to show the deep fascia. Careful dissection through this layer identified three main crossing vessels of the lateral femoral circumflex. These were cauterized in multiple locations and then cut without any noticeable bleeding. The TFL was further released bluntly from the deep fascia to expose anterior hip capsule and fat A T-capsulotomy was then performed starting at the superior lateral acetabulum and moving distally to the intertrochanteric ridge. These capsular flaps were tagged with a No. 1 Ethibond and elevated from within. The capsular flaps were released to the shoulder of the lateral neck and to the lesser trochanter to give excellent visualization of the proximal femur. A neck osteotomy was performed using an oscillating saw based on preoperative templates. This cut started in the shoulder and of the lateral neck and exited medially. The saw was at all times directed medially to avoid injury to the greater trochanter. Gross traction was applied to the leg and the osteotomy opened. The femoral head was removed with a corkscrew, making sure to protect the TFL on its exit. Traction was released after head removal. This was measured on the back table to determine the starting reamer size. Portions of the rectus obscuring visualization were minimally elevated off the superior acetabulum. An anterior retractor was placed over the anterior wall between capsule and labrum and attached to the Gripper retraction system. The femur was rotated to 90 degrees and medial capsule was fully released until the lesser trochanter was palpable and visible; the femur was returned to 30 degrees. A posterior retractor was placed similarly between capsule and labrum. This provided excellent visualization. The contents of the cotyloid fossa were removed with electrocautery and the labrum was removed with a knife. There was a notable floor osteophyte. There was significant chondromalacia of the superior acetabulum. Acetabular reaming began with a 54mm reamer. This first reaming was directed anterior to posterior and medial to get down to the true floor. This was inspected and reamed until the true floor was reached. The anterior retractor was then released and entry and exit was provided by traction on the capsular flaps. I then reamed sequentially up to a 58mm reamer where good fit was obtained. The larger reamers were oriented based on anatomical reference of the anterior and lateral bautista to ensure proper abduction and anteversion. Positioning and size was confirmed with the fluoroscopy. A 58mm Depuy [place] acetabular component was selected. The acetabulum was reamed around the periphery with the selected acetabular size to prevent a rim fit. The deep tissues were irrigated. The acetabular component was then impacted in a position of about 40-45 degrees of abduction and 15-20 degrees of anteversion, using the patient?s anatomy as the ultimate landmark. Fluoroscopy was used to confirm this. There was excellent mold puller of the acetabular component and the inserting handle was removed. The acetabular liner, Depuy [id number] polyethylene liner, was inserted and lined up with the tines of the acetabular component. There was no soft tissue inter position. The liner was then impacted into position and confirmed to be well- seated. A portion of the mk-articular cocktail was then injected around the acetabulum into the capsule and periosteum. This cocktail consisted of 50cc of 0.25% Bupivicaine and 20cc of Exparel and 30mg of Ketorolac. The leg was rotated to 120 degrees. Any remaining medial capsule was released until the lesser trochanter was easily palpable. A retractor was placed medially. The lateral capsule was further released into the shoulder to allow access to the greater trochanter. A Velasco retractor was placed over the greater trochanter which allowed the trochanter to flip in front of the capsule for excellent exposure. The leg was brought down into maximal extension and 20 degrees of adduction while ensuring there was no impingement on the acetabulum. Any remnant capsule within the trochanter was released. Piriformis and obturator externis were identified and protected. There was excellent access to the proximal femur. The lateral neck remnant was removed with a rongeur. A blunt canal probe was used to identify the canal and trajectory for later broaching. A box osteotome initiated the broach course. A small curved rasp and a curved curette were used to work laterally. Broaching then began with a size 8 Corail broach. This was inserted manually around the trochanter and into the canal before mallet blows. The broach was seated to a few millimeters below the cut level based on the neck cut and the preoperative template. Sequential broaching was continued with the Ziploop pneumatic broaching device until a tight fit was obtained with good rotational control of the femur. A trial high offset neck was inserted along with a +1.5 trial head. The leg was brought out of extension and adduction and then reduced with traction and internal rotation. The leg was stable anteriorly in a position of 30 degrees of extension and 90 degrees of external rotation. Fluoroscopy was used to ensure there was no fracture and the stem was seated well. Leg lengths were checked with an AP pelvis and pelvic reference points. ApeSoft navigation system was used to confirm appropriate positioning and leg length and offset. Once content with the desired offset and leg lengths, the leg was brought back into extension, external rotation and adduction. The periosteum and surrounding tissue was injected with remaining portion of the mk-articular cocktail. The proximal femur was irrigated as well as the deep tissues. The Depuy Corail High Offset collared stem, size 13, was then manually inserted into the proximal femur making sure to control rotation. It was then malleted into position with light blows, giving breaks to allow bone expansion and decrease risk of fracture. The selected Depuy Altrx Ceramic Head, size 36+1.5mm, was then placed onto the clean and dry trunnion and secured with impaction onto the tapered fit. The leg was brought back out of extension and adduction and reduced with traction and internal rotation. Stability was confirmed with no shuck at 90 degrees of external rotation and 30 degrees of extension. No impingement through range of motion arc. Final x-ray images were obtained with fluoroscopy to confirm adequate positioning and no intraoperative fracture. The deep tissues were thoroughly irrigated with Irrisept chlorhexadine solution. The capsule was then reapproximated with the previously placed Ethibond sutures. The TFL fascia was finally closed with a No. 2 Stratafix, barbed suture. Deep tissues were then reapproximated with 0 Vicryl and a running 2-0 Vicryl. The skin was closed with a running 4-0 Monocryl in a subcuticular fashion. This was reinforced with skin glue. A Mepilex silver dressing was applied. At the end of the case, all counts were correct. Iam was transferred to the hospital bed without difficulty and suffering no apparent complication. He has a good prognosis. Physical therapy will start today and without restrictions, weight-bearing as tolerated. Aspirin 81mg BID will be used for DVT prophylaxis.
== END 2021-07-09 13:57 | disposition home or self-care (01) ==
PROVIDERS: PCP Nurse Practitioner Family; Visit Provider Student in an Organized Health Care Education/Training Program
PROC: (CPT 27130; principal; 2021-07-09 07:30)
DX: M16.11 Unilateral primary osteoarthritis, right hip (principal); K58.9 Irritable bowel syndrome, unspecified
CPT/HCPCS: 27130; 20985; 97162; 97530; 73501; J0131; J0690; J1100; J1885; J2001; J2250; J2405

== ENCOUNTER 2021-07-22 10:11 | Outpatient (CLI) | payer OTHER, MEDICAID, SELFPAY ==
--- NOTE | 2021-07-22 09:45 | DI.RAD_ITS ---
Exam(s) XR HIP RT COMPLETE AP PELVIS EXAM: XR HIP RT COMPLETE AP PELVIS INDICATION: 1ST POST OP R BLAIR. COMPARISON: CR XR HIP RT COMPLETE AP PELVIS from 02/25/2021 TECHNIQUE: 2D digital imaging was performed. Two views FINDINGS: No change in bilateral hip prostheses or appearance of the surrounding bone. No new abnormalities. Stable soft tissue calcifications adjacent to the left acetabulum. DATA REPOSITORY: RADIATION DOSE DELIVERED:
== END 2021-07-22 10:12 | disposition home or self-care (01) ==
LOC: DIORS 10:12
PROVIDERS: PCP Nurse Practitioner Family; Visit Provider Student in an Organized Health Care Education/Training Program
DX: M16.11 Unilateral primary osteoarthritis, right hip (principal); Z96.641 Presence of right artificial hip joint; Z47.1 Aftercare following joint replacement surgery
CPT/HCPCS: 73502

== ENCOUNTER 2022-04-08 04:09 | Outpatient (CLI) | payer OTHER, SELFPAY ==
[2022-04-08] MEDS: Albuterol HFA 18 GM 200 PUFF INH IH (16:19)
[2022-04-08] MEDS: Inhaler, Assist Device 1 EACH MC (16:19)
--- NOTE | 2022-04-09 07:06 | W.PFT ---
Date of service: 04/08/22 Time of Service: 14:53 Pulmonary Function Test Result Requesting Provider Duchene Indications: Restrictive lung disease Interpretation Spirometry: There is no airflow limitation. There is no significant bronchodilator response. There is a restrictive appearing spirometry. Lung Volumes: Normal lung volumes Diffusion Capacity: Normal diffusion Airway Pressure: Normal airways resistance Impression Normal pulmonary function testing. Low FVC is likely pseudo-restriction from obesity. Note: When compared to spirometry on 11/01/20, the FEV1 and FVC are improved. Clinical Correlation therefore is recommended.
== END 2022-04-08 04:10 | disposition home or self-care (01) ==
PROVIDERS: PCP Nurse Practitioner Family; Visit Provider Student in an Organized Health Care Education/Training Program
DX: J98.4 Other disorders of lung (principal)
CPT/HCPCS: 94060; 94726; 94729

== ENCOUNTER 2022-07-14 11:07 | Outpatient (CLI) | payer OTHER, SELFPAY ==
--- NOTE | 2022-07-14 09:00 | DI.RAD_ITS ---
Exam(s) XR HIP RT AP LAT ONLY EXAM: XR HIP RT AP LAT ONLY INDICATION: ANNUAL F/U R BLAIR. COMPARISON: CR XR HIP RT COMPLETE AP PELVIS from 07/22/2021 TECHNIQUE: 2D digital imaging was performed. Two views. FINDINGS: There has been no change in the alignment of the right hip prosthesis. There are no suspicious bony lucencies. DATA REPOSITORY: RADIATION DOSE DELIVERED:
== END 2022-07-14 11:08 | disposition home or self-care (01) ==
LOC: DIORS 11:08
PROVIDERS: PCP Nurse Practitioner Family; Referring Provider Nurse Practitioner Family; Visit Provider Student in an Organized Health Care Education/Training Program
DX: M16.11 Unilateral primary osteoarthritis, right hip (principal); Z96.641 Presence of right artificial hip joint; Z47.1 Aftercare following joint replacement surgery
CPT/HCPCS: 73502

== ENCOUNTER → 2023-01-10 10:02 | Outpatient (CLI) | payer MEDICAID, SELFPAY ==
--- NOTE | 2023-01-10 10:00 | DI.RAD_ITS ---
Exam(s) XR FINGER LT INDEX EXAM: XR FINGER LT INDEX EXAM DATE/TIME: CLINICAL HISTORY: evaluate osteo lesion. TECHNIQUE: 2D digital imaging was performed of the left finger. Three views were obtained. PA/AP, oblique, and lateral views were obtained. COMPARISON: None. FINDINGS: BONES: No acute fracture is present. No bony destructive lesion is seen. JOINTS: No dislocation is present. There are degenerative changes seen at the interphalangeal joints . SOFT TISSUE: Normal. IMPRESSION: No radiographic evidence of osteomyelitis. DATA REPOSITORY: RADIATION DOSE DELIVERED:
--- NOTE | 2023-01-10 10:18 | DI.VRAD_ITS ---
PROCEDURE INFORMATION: Exam: XR Left Finger(s) Exam date and time: 01/10/2023 10:08 AM Age: 57 years old Clinical indication: Injury or trauma; Other: Evaluate osteo lesion TECHNIQUE: Imaging protocol: Radiologic exam of the left fingers. Views: Minimum 2 views. COMPARISON: No relevant prior studies available. FINDINGS: Bones/joints: No acute fracture or dislocation. No bony erosion or aggressive osseous lesion. [id number] degenerative changes. Soft tissues: Index finger swelling. IMPRESSION: No acute findings or evidence of osteomyelitis. Dictated and Authenticated by: Asad Verduzco MD. Ordering:JOCY Morse MD
== END ==
PROVIDERS: PCP Nurse Practitioner Family; Visit Provider Nurse Practitioner Family
DX: S61.231A Puncture wound without foreign body of left index finger without damage to nail, initial encounter (principal)
CPT/HCPCS: 73140

== ENCOUNTER 2023-06-25 20:58 | Emergency (ER) | payer OTHER, MEDICAID, SELFPAY ==
[2023-06-25 21:00] VITALS: BP 183/63; PULSE 76; RESP 16; TEMP 36.3; O2SAT 97
--- NOTE | 2023-06-25 21:15 | DI.RAD_ITS ---
Exam(s) XR FOOT RT COMPLETE EXAM: XR FOOT RT COMPLETE CLINICAL HISTORY: right foot pain. TECHNIQUE: 2D digital imaging was performed of the right foot. Three images were obtained. AP, obl ique and lateral views were obtained. COMPARISON: No exams were available for comparison FINDINGS: BONES: No acute fracture is present. No bony destructive lesion is seen. JOINTS: No dislocation present. There are mild degenerative changes seen at the 1st MTP joint charact erized by joint space narrowing and osteophytes. There is mild hallux valgus. SOFT TISSUE: Normal. IMPRESSION: Mild degenerative changes seen at the 1st MTP joint. DATA REPOSITORY: RADIATION DOSE DELIVERED:
[2023-06-25 21:25] LABS: ESR 7 mm/hr (0-20)
[2023-06-25 21:27] LABS: Abs Immature Grans 0.04 10^3/uL (0.0-0.06); Absolute Basophil Count 0.06 10^3/uL (0.0-0.2); Absolute Eosinophil Count 0.21 10^3/uL (0.0-0.7); Absolute Lymphocyte Count 2.31 10^3/uL (1.2-3.4); Absolute Monocyte Count 0.78 10^3/uL (0.1-0.8); Absolute Neutrophil Count 5.28 10^3/uL (1.2-6.7); Basophils % 0.7; Eosinophils % 2.4; HCT 42.9 % (40.0-50.0); HGB 14.3 g/dL (13.5-17.5); Immature Grans % 0.5; Lymphocytes % 26.6; MCH 30.4 pg (27.0-33.0); MCHC 33.3 % (32.0-36.0); MCV 91 fL (80-95); MPV 9.2 fL (8.0-11.0); Neutrophils % 60.8; Platelet Count 250 10^3/uL (130-400); RBC 4.71 10^6/uL (4.36-5.78); RDW 12.6 % (11.8-14.1); WBC 8.68 10^3/uL (4.4-10.8)
[2023-06-25 21:44] LABS: ALT 30 U/L (16-63); AST 16 U/L (15-37); Alkaline Phosphatase 82 U/L (46-116); Anion Gap 8.8 mmol/L (3-11); BUN 17 mg/dL (7-18); Bilirubin, Total 0.7 mg/dL (0.2-1.0); C-Reactive Protein < 0.50 mg/dL (<or=0.5); CO2 29.2 mmol/L (21.0-32.0); CREATININE 1.2 mg/dL (0.70-1.30); Calcium 9.3 mg/dL (8.5-10.1); Chloride 102 mmol/L (98-107); Estimated GFR 70.98 (mL/min/1.73m2); Glucose 134 mg/dL (74-106); Potassium 4.4 mmol/L (3.5-5.1); Sodium 140 mmol/L (136-145); Total Protein 7.9 g/dL (6.4-8.2); Uric Acid 5.7 mg/dL (3.5-7.2)
--- NOTE | 2023-06-25 22:20 | DI.VRAD_ITS ---
PROCEDURE INFORMATION: Exam: XR Right Foot Exam date and time: 06/25/2023 9:38 PM Age: 58 years old Clinical indication: Pain; Foot; Right TECHNIQUE: Imaging protocol: Radiologic exam of the right foot. Views: 3 or more views. COMPARISON: No relevant prior studies available. FINDINGS: Bones/joints: Mild metatarsus hallux valgus. Mild degenerative changes of the 1st MTP. No acute fracture or dislocation. Soft tissues: Normal. IMPRESSION: No acute fracture or dislocation. Dictated and Authenticated by: Abrahan Mcghee MD. Ordering:SUNG Cates MD
[2023-06-25] MEDS: predniSONE 20 MG TAB 40 MG PO (22:29)
--- NOTE | 2023-06-25 22:42 | ED.GENADUL_ITS ---
HPI General Date/Time Provider Initiated Documentation: 06/25/23 21:06 . HPI Narrative: 58-year-old gentleman presenting with right lateral ankle pain. States the pain started several days ago and he has been taking ibuprofen without alleviation of symptoms. He denies known trauma. He states the pain is primarily lateral. He denies any calf pain or swelling or history of similar pain in the past. He does have a history of gout, it has been in his great toe in the past per patient. Denies any fever or chills. Denies pain with moving his ankle. Denies any lacerations recently. Related Data Home Medications Medication Instructions Recorded Confirmed acetaminophen 500 mg tablet 1,000 mg (2 x 500 mg) PO Q8H PRN 07/09/21 06/25/23 pain #90 tabs ibuprofen 600 mg tablet 600 mg PO TID PRN pain #90 tabs 07/09/21 06/25/23 prednisone 20 mg tablet 40 mg (2 x 20 mg) PO ONCE #8 tabs 06/25/23 Previous Rx's Medication Instructions Recorded acetaminophen 500 mg tablet 1,000 mg (2 x 500 mg) PO Q8H PRN 07/09/21 pain #90 tabs ibuprofen 600 mg tablet 600 mg PO TID PRN pain #90 tabs 07/09/21 prednisone 20 mg tablet 40 mg (2 x 20 mg) PO ONCE #8 tabs 06/25/23 Allergies Allergy/AdvReac Type Severity Reaction Status Date / Time No Known Allergies Allergy Verified 06/25/23 21:02 General Stated Complaint: Orthopedic ERIN: 3 Course Vital Signs Vital signs: Vital Signs Temperature 36.3 C L 06/25/23 21:00 Pulse 76 06/25/23 21:00 Respiratory Rate 16 06/25/23 21:00 Blood Pressure 183/63 H 06/25/23 21:00 Pulse Oximetry 97 06/25/23 21:00 Temperature 36.3 C L 06/25/23 21:00 Temperature Source Temporal Artery Scan 06/25/23 21:00 Pulse 76 06/25/23 21:00 Respiratory Rate 16 06/25/23 21:00 Respiratory Effort Normal, Non-Labored 06/25/23 21:03 Blood Pressure 183/63 H 06/25/23 21:00 Blood Pressure Position Sitting 06/25/23 21:00 Pulse Oximetry 97 06/25/23 21:00 Oxygen Delivery Method Room Air 06/25/23 21:00 Oxygen Flow Rate 0 06/25/23 21:00 Pain Level 8 06/25/23 21:08 Lab/Test Results Lab/Test Results: Laboratory Tests Range/Units 06/25/23 21:20 WBC (4.4-10.8) 10^3/uL 8.68 RBC (4.36-5.78) 10^6/uL 4.71 Hgb (13.5-17.5) g/dL 14.3 Hct (40.0-50.0) % 42.9 MCV (80-95) fL 91 MCH (27.0-33.0) pg 30.4 MCHC (32.0-36.0) % 33.3 RDW (11.8-14.1) % 12.6 Plt Count (130-400) 10^3/uL 250 MPV (8.0-11.0) fL 9.2 Immature Gran % 0.5 Neutrophils % 60.8 Lymphocytes % 26.6 Monocytes % 9.0 Eosinophils % 2.4 Basophils % 0.7 Nucleated RBC % (0.0-0.3) % 0.0 Absolute Neutrophils (1.2-6.7) 10^3/uL 5.28 Absolute Lymphocytes (1.2-3.4) 10^3/uL 2.31 Absolute Monocytes (0.1-0.8) 10^3/uL 0.78 Absolute Eosinophils (0.0-0.7) 10^3/uL 0.21 Absolute Basophils (0.0-0.2) 10^3/uL 0.06 ESR (0-20) mm/hr 7 Sodium (136-145) mmol/L 140 Potassium (3.5-5.1) mmol/L 4.4 Chloride (98-107) mmol/L 102 Carbon Dioxide (21.0-32.0) mmol/L 29.2 Anion Gap (3-11) mmol/L 8.8 BUN (7-18) mg/dL 17 Creatinine (0.70-1.30) mg/dL 1.2 Est GFR (CKD-EPI 2020) (mL/min/1.73m2) 70.98 Glucose (74-106) mg/dL 134 H Uric Acid (3.5-7.2) mg/dL 5.7 Calcium (8.5-10.1) mg/dL 9.3 Total Bilirubin (0.2-1.0) mg/dL 0.7 AST (15-37) U/L 16 ALT (16-63) U/L 30 Alkaline Phosphatase (46-116) U/L 82 C-Reactive Protein (<or=0.5) mg/dL < 0.50 Total Protein (6.4-8.2) g/dL 7.9 Albumin (3.4-5.0) g/dL 4.0 Medical Decision Making This 58-year-old gentleman presents with report of right lateral ankle pain. On exam he has lateral swelling, no erythema, range of motion intact ankle, low suspicion for septic ankle Suspect patient has osteoarthritis versus gout, will treat with prednisone and reevaluate in 24 to 48 hours Neurovascularly intact, no significant swelling to calf or evidence of lymphangitis, afebrile and nontoxic, no leukocytosis, CRP within normal limits, sed rate within normal limits, no crepitus, no reported trauma X-ray does not show significant acute abnormality per radiology interpretation my review Return precautions reviewed and patient expressed understanding Quality:SDOH Health Related Social Needs: No Data to Display PFSH All Active Problems (Updated 06/25/23 @ 22:17 by ASIF Miner) Acute ankle pain (Acute) BRIA (obstructive sleep apnea) (Chronic) GERD (gastroesophageal reflux disease) (Chronic) Restrictive lung disease (Acute) Medical History IBS (irritable bowel syndrome) Tinnitus Surgical History Status post right hip replacement 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) Social History Smoking/Tobacco Use Status: Never Smoking risk assessment performed?: Yes Alcohol Intake: never Details: one wine cooler/week Drug use: Never Substance use type: does not use Housing: house Current gender identity: male Do you feel safe at home: Yes Do you feel safe in your relationship?: Yes Discharge Plan Disposition Patient Disposition: Home Condition: Stable Discharge Details Clinical Impression: Acute ankle pain Primary Care Provider: Aren Calvert ED Provider: Neyda,Loan Home Meds and New Rx's Prescriptions: New prednisone 20 mg tablet 40 mg PO ONCE Qty: 8 0RF Continued acetaminophen 500 mg tablet 1,000 mg PO Q8H PRN (Reason: pain) Qty: 90 3RF ibuprofen 600 mg tablet 600 mg PO TID PRN (Reason: pain) Qty: 90 3RF Discharge Instructions Instructions: Leg Pain (ED) Additional Instructions: take 2 tablets daily for the next 5 days if your symptoms are worsening tomorrow, despite the prednisone, please present for reassessment take tylenol 650 mg every 6 hours for pain try to limit your weightbearing and elevate your foot recommend 24-48 hour reassessment return earlier with spreading redness, fever, worsening pain Referrals: Aren Calvert [Primary Care Provider] - Discharge Data Discharge Date/Time-TO BE ENTERED AT DEPARTURE: 06/25/23 22:30
== END 2023-06-25 22:30 | disposition home or self-care (01) ==
PROVIDERS: Emergency Provider Physician Assistant; PCP Nurse Practitioner Family
DX: M25.571 Pain in right ankle and joints of right foot (principal)
CPT/HCPCS: 80053; 85652; 99283; 73630; 84550; 85025; 86140; J7512

== ENCOUNTER 2023-07-13 15:16 | Outpatient (CLI) | payer MEDICAID, SELFPAY ==
--- NOTE | 2023-07-13 09:36 | DI.RAD_ITS ---
Exam(s) XR HIP RT AP LAT ONLY EXAM: XR HIP RT AP LAT ONLY INDICATION: ANNUAL F/U R TKA. COMPARISON: CR XR HIP RT AP LAT ONLY from 07/14/2022 TECHNIQUE: 2D digital imaging was performed. Two views. FINDINGS: There has been no change in the alignment of the right hip prosthesis. No abnormal surrounding bony lucencies. No evidence of fracture. DATA REPOSITORY: RADIATION DOSE DELIVERED:
== END 2023-07-13 15:17 | disposition home or self-care (01) ==
LOC: DIORS 15:16
PROVIDERS: PCP Nurse Practitioner Family; Visit Provider Student in an Organized Health Care Education/Training Program
DX: Z96.641 Presence of right artificial hip joint (principal); Z47.1 Aftercare following joint replacement surgery
CPT/HCPCS: 73502